=== PATIENT | male | born 1965 | race Two or more races ===

== ENCOUNTER 2016-08-12 13:35 | Emergency (ER) | payer OTHER ==
[2016-08-12 14:04] VITALS: BP 110/86; PULSE 83; TEMP 98.4; BMI 27.4
--- NOTE | 2016-08-12 14:13 | PDOC ---
History of Present Illness - General Chief Complaint: Weakness Stated Complaint: WEAKNESS Time Seen by Provider: 08/12/16 14:09 History Source: Patient Exam Limitations: No Limitations - History of Present Illness Initial Comments: 08/12/16 14:09 The patient is a 50-year-old male, with a significant past medical history of Parkinsons disease, who presents to the emergency department for an evaluation, requested by the [facility] [employer]. According to the patient, he was in his usual state of health, standing at the gas station, and released approached him with concern for his shaky gait. He states that his gait is always shaky, secondary to his Parkinson's disease, and he is currently at baseline. he denies fall. He has no complaints, and does not want an emergency department evaluation beyond history and physical examination. 08/12/16 14:11 Past History - Past Medical History Allergies/Adverse Reactions: Allergies Allergy/AdvReac Type Severity Reaction Status Date / Time No Known Allergies Allergy Verified 05/27/15 11:33 Home Medications: Ambulatory Orders Amantadine HCl [Symmetrel -] 100 mg PO BID 05/23/15 Carbidopa/Levodopa *Cr* 50/200 [Sinemet *Cr* 50/200 -] 1 combo PO BID 05/23/15 Carbidopa/Levodopa 25/100 [Sinemet 25/100 -] 1 each PO TID 05/23/15 Entacapone 200 mg PO DAILY 05/23/15 Pramipexole Di-HCl [Mirapex ER] 2.25 mg PO TID 05/23/15 Rasagiline Mesylate [Azilect] 1 mg PO DAILY 05/23/15 Tamsulosin HCl 0.4 mg PO DAILY 05/23/15 Trihexyphenidyl HCl 2 mg PO TID 05/23/15 Other medical history: parkinsons disease - Psycho/Social/Smoking Cessation Hx Anxiety: No Suicidal Ideation: No Smoking History: Never smoked Have you smoked in the past 12 months: No Information on smoking cessation initiated: No Hx Alcohol Use: No Drug/Substance Use Hx: No Substance Use Type: None Review of Systems - Review of Systems Comments:: 08/12/16 14:10 CONSTITUTIONAL: Absent: fever, chills, fatigue EYES: Absent: visual changes ENT: Absent: ear pain, sore throat CARDIOVASCULAR: Absent: chest pain, palpitations, loss of consciousness RESPIRATORY: Absent: cough, SOB GI: Absent: abdominal pain, nausea, vomiting, constipation, diarrhea GENITOURINARY: Absent: dysuria, frequency, hematuria MUSKULOSKELETAL: Absent: back pain, arthralgia, myalgia SKIN: Absent: rash NEURO: Present: Parkinson's Absent: headache, dizziness *Physical Exam - Vital Signs Last Vital Signs Temp Pulse Resp BP Pulse Ox 98.4 F 83 20 110/86 100 08/12/16 13:50 08/12/16 13:50 08/12/16 13:50 08/12/16 13:50 08/12/16 13:50 - Physical Exam Comments: 08/12/16 14:11 GENERAL: Well developed, well nourished. Awake and alert. No acute distress. HEENT: Normocephalic, atraumatic. PERRLA, EOMI. No conjunctival pallor. Sclera are non- icteric. Moist mucous membranes. Oropharynx is clear. NECK: Supple. Full ROM. No JVD. Carotid pulses 2+ and symmetric, without bruits. No thyromegaly. No lymphadenopathy. CARDIOVASCULAR: Regular rate and rhythm. No murmurs, rubs, or gallops. Distal pulses are 2+ and symmetric. PULMONARY: No evidence of respiratory distress. Lungs clear to auscultation bilaterally. No wheezing, rales or rhonchi. ABDOMINAL: Soft. Non-tender. Non-distended. No rebound or guarding. No organomegaly. Normoactive bowel sounds. MUSCULOSKELETAL Normal range of motion at all joints. No bony deformities or tenderness. No CVA tenderness. EXTREMITIES: No cyanosis. No clubbing. No edema. No calf tenderness. SKIN: Warm and dry. Normal capillary refill. No rashes. No jaundice. NEUROLOGICAL: Some shuffling of his gait, which is steady overall. Some cogwheen rigidity. Alert, awake, appropriate. Cranial nerves 2-12 intact. No deficits to light touch and temperature in face, upper extremities and lower extremities. No motor deficits in the in face, upper extremities and lower extremities. Normoreflexic in the upper and lower extremities. Normal speech. Toes are down- going bilaterally. Gait is normal without ataxia. PSYCHIATRIC: Cooperative. Good eye contact. Appropriate mood and affect. Medical Decision Making - Medical Decision Making 08/12/16 14:11 He is well appearing and in no acute distress He reports that he is currently at baseline He would like to go home Clinical impression: Parkinson's Disease, at baseline I discussed the physical exam findings and final diagnoses with the patient. I answered all of the patient's questions. The patient was satisfied with the care received and felt comfortable with the discharge plan and treatment plan. The patient will call their primary care physician within 24 hours to arrange follow-up and will return to the Emergency Department with any new, persistent or worsening symptoms. *DC/Admit/Observation/Transfer Diagnosis at time of Disposition: Dizziness - Discharge Dispostion Disposition: HOME Condition at time of disposition: Fair - Referrals Referrals: David Kinney [Primary Care Provider] - - Patient Instructions Printed Discharge Instructions: DI for Parkinson's Disease Additional Instructions: Return to the emergency department immediately with ANY new, persistent or worsening symptoms. You MUST call and follow up with your doctor tomorrow. Please make sure your doctor reviews the results of your emergency department evaluation.
== END 2016-08-12 14:30 | disposition home or self-care (01) ==
LOC: JER 13:35
DX: G20 Parkinson's disease (principal)
CPT/HCPCS: 99282-25